=== PATIENT | male | born 1975 | race Caucasian/White ===

== ENCOUNTER 2018-11-11 06:58 | Emergency (ER) | payer SELFPAY ==
[2018-11-11 07:11] VITALS: BP 103/65
[2018-11-11 07:54] LABS: HEMOGLOBIN 16.6 g/dL (13.5-18.0); MEAN CELL VOLUME 81 fl (78-100); MEAN CORPUSCULAR HEMOGLOBIN 28 pg (27-31); MEAN CORPUSCULAR HGB CONC 35 g/dL (33-37); MEAN PLATELET VOLUME 10.5 fl (7.4-10.4); PLATELET COUNT 208 K/mm3 (130-400); RED BLOOD COUNT 5.95 M/mm3 (4.20-5.60); RED CELL DISTRIBUTION WIDTH 12.8 % (11.5-14.5); WHITE BLOOD COUNT 13.3 K/mm3 (4.8-10.8)
[2018-11-11 08:16] LABS: ALBUMIN 4.5 g/dL (3.5-5.0); POTASSIUM 4.3 mmol/L (3.6-5.0); TOTAL BILIRUBIN 1.3 mg/dL (0.2-1.3); TOTAL PROTEIN 8.2 g/dL (6.3-8.2)
[2018-11-11 08:24] LABS: BAND 5 % (0-10)
[2018-11-11 08:25] LABS: LYMPHOCYTE 4 % (20-51); MONOCYTE 8 % (3-10); NEUTROPHILS 82 % (42-75)
[2018-11-11] MEDS ORDERED: ZOFRAN ODT4 MG PO (09:44)
== END 2018-11-11 09:48 | disposition home or self-care (01) ==
LOC: ED 06:58
PROVIDERS: Family Medicine
DX: A08.4 Viral intestinal infection, unspecified (principal)